=== PATIENT | female | born 1975 | race African-American/Black ===

== ENCOUNTER 2021-02-14 02:41 | Emergency (ER) | payer MEDICAID ==
[~2021-02-14] VITALS: Ht 175.3 cm; Wt 114.0 kg
[2021-02-14] MEDS ORDERED: HYDROCODONE/ACETAMINOPHEN 5/325MG TABLET PO ONE (03:00)
[2021-02-14] MEDS ORDERED: BACITRACIN ZINC OINT UDPKT TOP ONE (03:00)
[2021-02-14] MEDS ORDERED: LIDOCAINE HCL/PF 1% 10 MG/ML 5ML VIAL IJ ONE (03:00)
[2021-02-14] MEDS ORDERED: IBUP-2029 MT (04:40)
[2021-02-14] MEDS ORDERED: NEOM28.37 TP (04:40)
[2021-02-14] MEDS ORDERED: T3 PO (04:40)
[2021-02-14 04:58] VITALS: BP 134/82
== END 2021-02-14 05:38 | disposition home or self-care (01) ==
LOC: ER 02:49
DX: M79.645 Pain in left finger(s) (principal); I10 Essential (primary) hypertension
CPT/HCPCS: 11760; 73140; 99284; A4217; J3490